=== PATIENT | female | born 1945 | race American Indian/Alaskan Native ===

== ENCOUNTER 2016-10-10 11:42 | Day surgery (SDC) | payer MEDICARE ==
[2016-10-10] VITALS (10 sets, daily range): BP systolic 118–190; BP diastolic 59–90
[~2016-10-10] VITALS: Ht 170.2 cm; Wt 67.1 kg
[2016-10-10] MEDS ORDERED: HEParin (CATH LAB) 2,000 ML IV ONE (12:03)
[2016-10-10] MEDS ORDERED: LIDOCAINE 1% INJ 20 ML (XYLOCAINE) VIAL ONE (12:03)
[2016-10-10] MEDS ORDERED: NS IV 1000 ML 1,000 ML ONE ×3 (12:03→16:06)
[2016-10-10] MEDS ORDERED: POTA99TA21 PO (12:17)
[2016-10-10] MEDS ORDERED: AMLO5TAB2 PO (12:17)
[2016-10-10 12:19] LABS: BASOPHILS # (AUTO) 0.1 10^3/uL (0.0-0.1); BASOPHILS % (AUTO) 1 % (0-10); EOSINOPHILS # (AUTO) 0.1 10^3/uL (0.0-0.3); EOSINOPHILS % (AUTO) 1 % (0-10); LYMPHOCYTES # (AUTO) 3.1 X 10^3 (1.0-4.0); LYMPHOCYTES % (AUTO) 33 % (12-44); MEAN CORPUSCULAR HEMOGLOBIN 29 PG (25-34); MEAN CORPUSCULAR HGB CONC 34 G/DL (32-36); MEAN CORPUSCULAR VOLUME 86 FL (80-99); MEAN PLATELET VOLUME 10.7 FL (7.4-10.4); MONOCYTES # (AUTO) 0.5 X 10^3 (0.0-1.0); MONOCYTES % (AUTO) 5 % (0-12); NEUTROPHILS # (AUTO) 5.6 X 10^3 (1.8-7.8); NEUTROPHILS % (AUTO) 60 % (42-75); PLATELET COUNT 253 10^3/uL (130-400); RED BLOOD COUNT 4.65 10^6/uL (4.35-5.85); RED CELL DISTRIBUTION WIDTH 12.9 % (10.0-14.5); WHITE BLOOD COUNT 9.3 10^3/uL (4.3-11.0)
[2016-10-10] MEDS ORDERED: CYAN500T2 PO (12:19)
[2016-10-10] MEDS ORDERED: CHOL20003 PO (12:19)
[2016-10-10] MEDS ORDERED: VITA1CAP PO (12:19)
[2016-10-10 12:34] LABS: INR 0.9 (0.8-1.4)
[2016-10-10 12:40] LABS: ALANINE AMINOTRANSFERASE 29 U/L (0-55); ALBUMIN 4.3 G/DL (3.2-4.5); ANION GAP 9 MMOL/L (5-14); ASPARTATE AMINO TRANSFERASE 36 U/L (5-34); BILIRUBIN,TOTAL 0.4 MG/DL (0.1-1.0); BLOOD UREA NITROGEN 14 MG/DL (7-18); BUN/CREATININE RATIO 18; CALCIUM 9.4 MG/DL (8.5-10.1); CARBON DIOXIDE 24 MMOL/L (21-32); CHLORIDE 108 MMOL/L (98-107); CHOLESTEROL 275 MG/DL (< 200); CREATININE SERUM 0.79 MG/DL (0.60-1.30); DIRECT LDL 172 MG/DL (1-129); GFR ESTIMATED > 60; GLUCOSE 97 MG/DL (70-105); POTASSIUM 4.1 MMOL/L (3.6-5.0); SODIUM 141 MMOL/L (135-145); TOTAL PROTEIN 6.9 G/DL (6.4-8.2); TRIGLYCERIDES 110 MG/DL (<150); VLDL CHOLESTEROL 22 MG/DL (5-40)
--- NOTE | 2016-10-10 12:56 | Diagnostic Imaging Report ---
INDICATION: Carotid stenosis. Portable chest at 1231 hours. FINDINGS: Heart size and pulmonary vascularity are normal. Lungs are clear. There are no effusions or pneumothoraces. IMPRESSION: Negative chest. Dictated by: Dictated on workstation # [id number]
--- NOTE | 2016-10-10 13:42 | Cardiac Procedure Note-CS/ASA ---
Pre-Procedure Note Pre-Op Procedure Note H&P Reviewed The H&P was reviewed, patient examined and no changes noted. Date H&P Reviewed: Oct 10, 2016 Time H&P Reviewed: 13:41 Conscious Sedation Pre-Proced Time Reviewed: 13:42 ASA Class: 3 Airway Mallampati Classification: (grayling appropriate class) I. II. III, IV Lungs Heart ASA score ASA 1: a normal healthy patient ASA 2: a patient with a mild systemic disease (mid diabetes, controlled hypertension, obesity x ASA 3: a patient with a severe systemic disease that limits activity (angina , COPD, prior Myocardial infarction) ASA 4: a patient with an incapacitating disease that is a constant threat to life (CHF, renal failure) ASA 5: a moribund patient not expected to survive 24 hrs. (ruptured aneurysm) ASA 6: a declared brain patient whose organs are being harvested. For emergent operations, add the letter E after the classification Grade 3 Sedation Plan: Analgesia, Amnesia, Plan communicated to team members, Discussed options with patient/fam, Discussed risks with patient/fam Note The patient is an appropriate candidate to undergo the planned procedure, sedation, and anesthesia. The patient immediately re-assessed prior to indication. JOSEFINA BRICE MD Oct 10, 2016 13:42
[2016-10-10] MEDS ORDERED: ENALAPRILAT 2.5 MG/2 ML (VASOTEC) VIAL IV NR (13:45)
--- NOTE | 2016-10-10 13:48 | Cardiology History & Physical ---
HPI-Cardiology Cardiology Consultation Date of Consultation 10/10/16 Date of Admission Indication: left foot pain HPI 71-year-old lady with history of hypertension, sent to my office for RORY evaluation, has erythema and pain in her left foot for the last 3 months, has been worsening, having cramps and pain in her left foot. RORY was abnormal, poor waveform on the left leg from the left thigh and below. She has been having worsening pain. Does not smoke, denied any chest pain, denied any shortness of breath, any palpitation or syncope. She is fairly anxious. PMH-Cardiology Seasonal Allergies Seasonal Allergies: No Cardiovascular Cardiac Disorders: Hypertension Gastrointestinal Gastrointestinal Disorders: Gall Bladder Disease Other PMHx Other PMHx: past medical history is noncontributory Social History Patient Social History Marrital Status: Alcohol Use: Denies Use Recreational Drug Use: No Smoking: Never smoker Recent Foreign Travel: No Contact w/other who traveled: No Recent Infectious Disease Expo: No Family Hx Family History: FH: gallbladder disease 19 MOTHER Gout 19 FATHER, Onset:60 Myocardial infarction 19 FATHER, Onset:65 Thyroid disease G8 SISTER ROS-Cardiology Review of Systems General: No Chills, No Night Sweats, No Fatigue, No Malaise, No Appetite HEENT: No Head Aches, No Visual Changes, No Eye Pain, No Ear Pain, No Dysphasia , No Sinus Congestion, No Post Nasal Drip, No Sore Throat Pulmonary: No Dyspnea, No Cough, No Pleuritic Chest Pain Cardiovascular: : Other (left foot pain)No: Chest Pain, Edema, Lt Headedness, Orthopnea, Palpitations, Paroxysmal Noc. Dyspnea Gastrointestinal: No: Abdominal Pain, Constipation, Diarrhea, Hematochezia, Melena, Nausea, Vomiting Genitourinary: No Dysuria, No Frequency, No Incontinence, No Hematuria, No Retention Musculoskeletal: No: arm pain, back pain, foot pain, hand pain, leg pain, neck pain, shoulder pain Neurological: No: Change in speech, Confusion, Incoordination, Numbness, Seizures, Weakness Home Medications & Allergies Allergies: Coded Allergies: No Known Drug Allergies (Unverified , 10/10/16) Home Medication List Reviewed: Yes Exam-Cardiology Vital Signs Vital Signs Date Time Temp Pulse Resp B/P Pulse Ox O2 Delivery O2 Flow Rate FiO2 10/10/16 13:15 65 190/85 10/10/16 12:05 97.9 18 99 Room Air Exam General Appearance: Alert, Oriented X3, Cooperative, No Acute Distress HEENT: Atraumatic, PERRLA Respiratory: Clear to Auscultation, Normal Air Movement Cardiovascular: Regular Rate, Normal S1, Normal S2, No Murmurs, Other (left foot is erythematous around the toes, diminished pulses) Abdominal: Normal Bowel Sounds, Soft, No Tenderness, No Hepatosplenomegaly, No Masses Extremities: No Clubbing, No Cyanosis, No Edema, Normal Pulses, No Tenderness/ Swelling Skin: No Rashes, No Breakdown, No Significant Lesion Neuro: Normal Gait, Normal Speech, Strength at 5/5 X4 Ext, Normal Tone, Sensation Intact Psych/Mental Status: Mental Status NL, Mood NL Results Labs Labs Laboratory Tests 10/10/16 12:04: Alanine Aminotransferase (ALT/SGPT) 29, Albumin 4.3, Alkaline Phosphatase 90, Anion Gap 9, Aspartate Amino Transf (AST/SGOT) 36H, BUN/Creatinine Ratio 18, Basophils # (Auto) 0.1, Basophils (%) (Auto) 1, Blood Urea Nitrogen 14, Calcium Level 9.4, Carbon Dioxide Level 24, Chloride Level 108H, Cholesterol Level 275H , Creatinine 0.79, Eosinophils # (Auto) 0.1, Eosinophils (%) (Auto) 1, Estimat Glomerular Filtration Rate > 60, Glucose Level 97, HDL Cholesterol 85H, Hematocrit 40, Hemoglobin 13.5, INR Comment 0.9, LDL Cholesterol Direct 172H, Lymphocytes # (Auto) 3.1, Lymphocytes (%) (Auto) 33, Mean Corpuscular Hemoglobin 29, Mean Corpuscular Hemoglobin Concent 34, Mean Corpuscular Volume 86, Mean Platelet Volume 10.7H, Monocytes # (Auto) 0.5, Monocytes (%) (Auto) 5, Neutrophils # (Auto) 5.6, Neutrophils (%) (Auto) 60, Platelet Count 253, Potassium Level 4.1, Prothrombin Time 12.0L, Red Blood Count 4.65, Red Cell Distribution Width 12.9, Sodium Level 141, Total Bilirubin 0.4, Total Protein 6.9, Triglycerides Level 110, VLDL Cholesterol 22, White Blood Count 9.3 A/P-Cardiology Admission Diagnosis Left foot pain PAD HTN Hyperlipidemia Assessment/Plan Left foot pain with ischemia, abnormal RORY, planning for peripheral angiogram Hypertension, poor control, restart norvasc and monitor BP Hyperlipidemia, will start statin Clinical Quality Measures DVT/VTE Risk/Contraindication: Risk Factor Score Per Nursin RFS Level Per Nursing on Admit: 2=Moderate JOSEFINA BRICE MD Oct 10, 2016 13:48
[2016-10-10 14:09] LABS: BILIRUBIN,URINE NEGATIVE (NEGATIVE); KETONES,URINE NEGATIVE (NEGATIVE); LEUKOCYTE ESTERASE ,URINE NEGATIVE (NEGATIVE); NITRITE,URINE NEGATIVE (NEGATIVE); PH,URINE 8 (5-9); PROTEIN,URINE NEGATIVE (NEGATIVE); UROBILINOGEN,URINE NORMAL (NORMAL)
[2016-10-10] MEDS ORDERED: FLU TRIvalent (5 YOA+) 2016-17 (AFLURIA) 0.5 ML IM ONE (14:15)
[2016-10-10 14:20] LABS: SQUAMOUS EPITHELIAL CELL,UR RARE /HPF
[2016-10-10] MEDS ORDERED: MIDAZOLAM 5 MG/5 ML (VERSED) VIAL ONE (15:36)
[2016-10-10] MEDS ORDERED: fentaNYL INJECTION 100 MCG/2 ML AMP ONE (15:36)
[2016-10-10] MEDS ORDERED: HEParin 1000 UNIT/ML (10ML VIAL) FOR BOLUS ONE (16:02)
[2016-10-10] MEDS ORDERED: NITROGLYCERIN DRIP 25 MG/D5W 250 ML IV ONE (16:38)
[2016-10-10] MEDS ORDERED: CLOPIDOGREL 300 MG (PLAVIX) TABLET PO ONE (17:10)
[2016-10-10] MEDS ORDERED: ASPIRIN 81 MG CHEW (CHILDREN'S ASA) ONE ×2 (17:10→17:16)
[2016-10-10] MEDS ORDERED: NS IV 1000 ML 1,000 ML IV SCH (17:14)
[2016-10-10] MEDS ORDERED: PATIENT MAY USE OWN MEDS, ALL PO SCH (17:15)
[2016-10-10] MEDS ORDERED: PANTOPRAZOLE 40 MG (PROTONIX) TAB PO NR (17:30)
[2016-10-10] MEDS ORDERED: ATORVASTATIN 10 MG (LIPITOR) TABLET PO SCH (21:00)
[2016-10-11 04:11] LABS: MEAN PLATELET VOLUME 10.6 FL (7.4-10.4); RED BLOOD COUNT 3.74 10^6/uL (4.35-5.85)
[2016-10-11 04:32] LABS: ANION GAP 8 MMOL/L (5-14); BLOOD UREA NITROGEN 13 MG/DL (7-18); BUN/CREATININE RATIO 19; CALCIUM 8.1 MG/DL (8.5-10.1); CARBON DIOXIDE 21 MMOL/L (21-32); CHLORIDE 111 MMOL/L (98-107); CREATININE SERUM 0.69 MG/DL (0.60-1.30); GFR ESTIMATED > 60; GLUCOSE 91 MG/DL (70-105); POTASSIUM 4.1 MMOL/L (3.6-5.0); SODIUM 140 MMOL/L (135-145)
[2016-10-11] MEDS ORDERED: OMEGA 3 (FISH OIL) 1000 MG CAP PO SCH (07:00)
[2016-10-11] MEDS ORDERED: PANTOPRAZOLE 40 MG (PROTONIX) TAB PO SCH (07:00)
--- NOTE | 2016-10-11 07:13 | Cardiology Progress Note ---
Subjective Subjective/Events-last exam patient is feeling better, still having pain in her left foot, palpable dorsalis pedis pulse, right groin healed well Review of Systems General: No Chills, No Night Sweats, No Fatigue, No Malaise, No Appetite, No Other HEENT: No Head Aches, No Visual Changes, No Eye Pain, No Ear Pain, No Dysphasia , No Sinus Congestion, No Post Nasal Drip, No Sore Throat, No Other Pulmonary: No Dyspnea, No Cough, No Pleuritic Chest Pain, No Other Objective-Cardiology Exam Last Set of Vital Signs Vital Signs 10/10/16 10/11/16 10/11/16 20:00 01:00 04:00 Temp 98.6 Pulse 59 Resp 12 B/P 152/70 Pulse Ox 97 O2 Delivery Room Air Capillary Refill : Less Than 3 Seconds I&O Bad tableGeneral: Alert, Oriented X3, Cooperative, No Acute Distress HEENT: Atraumatic, PERRLA Neck: Supple, No JVD Lungs: Clear to Auscultation, Normal Air Movement Heart: Regular Rate, Normal S1, Normal S2, No Murmurs, Other (left foot is erythematous around the toes, diminished pulses) Abdomen: Normal Bowel Sounds, Soft, No Tenderness, No Hepatosplenomegaly, No Masses Extremities: No Clubbing, No Cyanosis, No Edema, Normal Pulses, No Tenderness/ Swelling Skin: No Rashes, No Breakdown, No Significant Lesion Neuro: Normal Gait, Normal Speech, Strength at 5/5 X4 Ext, Normal Tone, Sensation Intact Psych/Mental Status: Mental Status NL, Mood NL Results Lab Laboratory Tests 10/10/16 12:04 10/11/16 03:52 A/P-Cardiology Admission Diagnosis Left foot pain PAD HTN Hyperlipidemia Assessment/Plan Left foot pain with ischemia, total occlusion of the left SFA, status post angioplasty and stent with atherectomy, excellent results. Using Supera 5.5 x 100 Hypertension, poor control, restart norvasc and monitor BP Hyperlipidemia, start on Lipitor and Fish oil Educated on compliance with medication. I will continue monitoring as an outpatient Clinical Quality Measures DVT/VTE Risk/Contraindication: Risk Factor Score Per Nursin RFS Level Per Nursing on Admit: 2=Moderate JOSEFINA BRICE MD Oct 11, 2016 07:13
[2016-10-11] MEDS ORDERED: CLOP75TA28 PO (07:15)
[2016-10-11] MEDS ORDERED: PANT40TA3 PO (07:15)
[2016-10-11] MEDS ORDERED: ASPI-983 PO (07:15)
[2016-10-11] MEDS ORDERED: OMG1KC PO (07:15)
[2016-10-11] MEDS ORDERED: ATOR10TA66 PO (07:15)
--- NOTE | 2016-10-11 07:16 | Discharge Inst-Post CATH ---
Discharge Inst-CATH Post Cardiac Cath D/C Inst Follow Up/Plan Appointment with Dr. Barriga's office next week CARDIAC CATH DISCHARGE INSTRUCTIONS *Hold Metformin for 48 hours post heart cath. ACTIVITY * Go Home directly and rest. * Limit activity of the leg (or wrist if it was used) for 7 days including aerobics, swimming, jogging, bicycling, etc. * Restrict stair-climbing for 7 days if possible, if not, climb up with your non -cath leg, then bring together on the same step. * Avoid lifting, pushing, pulling or excessive movement of the affected extremity for 7 days. * Customary sexual activity may be resumed after 2 days-use caution not to use a position that strains or causes pain to the affected extremity. * No driving for 24 hours. * NO SMOKING. * Avoid straining for bowel movements for 7 days. * Gentle walking on level ground is allowed. * Returning to work will depend on the type of procedure and the results. Your doctor will discuss this with you. CALL YOUR DOCTOR FOR ANY OF THE FOLLOWING: *If bleeding from the puncture site occurs- Apply gentle pressure to site with clean cloth and call your doctor or EMS. * If a knot or lump forms under the skin, increases in size, or causes pain. * If bruising appears to be worsening or moving further down your leg instead of disappearing. * Temperature above 101 F. CARE OF YOUR GROIN INCISION; * Bruising or purple discoloration of the skin near the puncture site is common. * You may shower only, no bathtub bathing for 5 days. Be careful to avoid slipping as your leg may feel stiff. * If a closure device was used on your femoral artery, please see the attached guide regarding care of the device and your leg. * REMOVE the dressing from your groin the next day after your procedure in the shower. CARE OF YOUR WRIST INCISION; * Bruising or purple discoloration of the skin near the puncture site is common. * You may shower. * DO NOT submerge wrist. * Remove dressing in 24 hours. JOSEFINA BARRIGA MD Oct 11, 2016 07:16
[2016-10-11] MEDS ORDERED: amLODIPine 5 MG (NORVASC) TAB PO SCH (09:00)
[2016-10-11] MEDS ORDERED: CLOPIDOGREL 75 MG (PLAVIX) TABLET PO SCH (09:00)
[2016-10-11] MEDS ORDERED: ASPIRIN E.C. 81 MG (ECOTRIN) TAB PO SCH (09:00)
--- OUTSIDE RECORDS SUMMARY | 2016-10-11 16:02 | XMS REPORT | Continuity of Care Document ---
Author Author [facility] Organization [facility] Address Unknown Phone Unavailable Allergies Medications Problems Procedures Results Encounters ACCT No. Visit Date/Time Discharge Status Pt. Type Provider Facility Loc./Unit Complaint [id number] 09/09/2014 14:04:45 09/09/2014 23: 59:59 [facility] Out[facility] Darion Higgins [id number] 09/07/2014 13:26:40 09/07/2014 23: 59:59 [facility] Outpatient Darion Higgins [id number] 08/25/2014 14:06:52 08/25/2014 23: 59:59 [facility] Outpatient Darion Higgins [id number] 08/09/2014 11:32:51 08/09/2014 23: 59:59 [facility] Outpatient Archie Davis [id number] 09/17/2016 11:35:11 [facility] Out[facility] Archie Davis [id number] 08/31/2016 09:38:41 [facility] Out[facility] Archie Davis [id number] 08/21/2016 11:35:04 [facility] Outpatient Archie Davis
--- OUTSIDE RECORDS SUMMARY | 2016-10-11 16:02 | XMS REPORT | Continuity of Care Document ---
Author Author [facility] Organization [facility] Address Unknown Phone Unavailable Allergies Medications Problems Procedures Results Encounters ACCT No. Visit Date/Time Discharge Status Pt. Type Provider Facility Loc./Unit Complaint [id number] 09/09/2014 14:04:45 09/09/2014 23: 59:59 [facility] Out[facility] Darion Higgins [id number] 09/07/2014 13:26:40 09/07/2014 23: 59:59 [facility] Outpatient Darion Higgins [id number] 08/25/2014 14:06:52 08/25/2014 23: 59:59 [facility] Outpatient Darion Higgins [id number] 08/09/2014 11:32:51 08/09/2014 23: 59:59 [facility] Outpatient Archie Davis [id number] 09/17/2016 11:35:11 [facility] Outpatient Archie Davis [id number] 08/31/2016 09:38:41 [facility] Outpatient Archie Davis [id number] 08/21/2016 11:35:04 [facility] Outpatient Archie Davis
[2016-10-11] MEDS ORDERED: AMLO10TA2 PO (18:46)
[2016-10-11] MEDS ORDERED: LOSA100T28 PO (18:46)
--- NOTE | 2016-10-12 10:08 | DISCHARGE SUMMARY ---
PROCEDURE PHYSICIAN: JOSEFINA BRICE PERIPHERAL ANGIOGRAM WITH ANGIOPLASTY REPORT DATE OF PROCEDURE: 09/09/2016 REFERRING PHYSICIAN: Dr. Yamilex Jama PRIMARY PHYSICIAN: Archie Amado BRIEF HISTORY: Mrs. Day is a 71-year-old lady with a history of hypertension. She was seen in my office today for RORY. She has been having pain in her left foot with redness appeared to be ischemic. ABIs showed poor flow with waveform almost flattened below the knee. We sent her directly for direct admission and angiogram to be done urgently. PROCEDURE NOTE: After explaining the procedure to the patient, all pros and cons were explained. All questions were answered. The patient signed a consent, then she was placed on the cardiac catheterization laboratory. The right groin was prepped in a sterile fashion. Local anesthesia applied to right groin. 6-Maltese sheath was placed in the right femoral artery. Runoff of the right lower extremity was done through the sheath and I advanced the pigtail catheter, placed in the abdominal aorta. Abdominal aortogram and evaluation of the bifurcation was done. Then I advance a Storq wire across the pigtail catheter, placed in the left common iliac, exchanged the straight catheter and runoff of the left lower extremity was done which showed total occlusion. The straight catheter was advanced to the SFA and repeat angiogram was done. Then I placed a Storq wire, removed the straight catheter and exchanged the sheath and 7-Maltese 55 mm sheath. The patient was given 5000 units of heparin. I advanced glidewire through the lesion. The patient has total occlusion of the distal SFA extending into the popliteal with very slow flow at the knee and below. Glidewire zip wire was advanced without difficulty. Then I used a Mini catheter, advanced distally, placed at the distal popliteal artery and the wire was removed injected dye and angiogram was done to evaluate the area below the trifurcation. At that point I decided to use protection device. I used Nad 6 wire. The basket was deployed, then I used jet stream G-3 with multiple passes through the total occlusion and then blades were opened up and did multiple passes. Angiogram showed slow flow but established lumen. I retrieved the basket then advanced a Storq wire. Over the Storq wire. I proceeded with Iron Belt balloon 5 x 40 mm multiple inflations, then I used Iron Belt 35, 6 x 100 inflated to its nominal size, multiple inflations. Then I readvanced Mini catheter, removed the Storq wire and used V18 wire. I proceeded with deployment of Supera stent 5.5 x 100, deployed in the distal SFA. After deployment I readvanced the Iron Belt 6 balloon post-dilated. Angiogram showed excellent results with excellent flow down to the foot. I did 2 separate angiogram below the trifurcation at the foot level which showed excellent results. Then the sheath was backed up and I exchanged into short 7-Maltese sheath. I readvanced Pigtail catheter to the abdominal aorta, I evaluate the abdominal aorta again. No complication noted. The sheath was removed and Mynx device deployed. Hemostasis achieved. Total heparin given was 8000 units, total contrast used 115 mL. ANATOMY: 1. Abdominal aortogram showed mild atherosclerotic small aorta. No aneurysm or dissection. 2. Right lower extremity runoff: The right lower extremity showed heavily calcified SFA throughout with NIA 2 flow down to the foot. 3. Left lower extremity angiogram showed total occlusion of the distal SFA, heavily calcified artery. Successful debulking with jet stream after deployment of basket wire then post dilatation and then deployment of Supera stent 5.5 x 100 mm with excellent results. No residual stenosis was noted. Brisk slowed down to the foot. CONCLUSION: 1. Total occlusion of the left SFA with ischemic foot. Successful emergency atherectomy with protection device then balloon angioplasty, then deployment of Supera stent 5.5 x 100 mm to the distal SFA with excellent results. No residual stenosis NIA-3 flow down to the foot. 2. Heavily calcified arteries on the right side with mild disease, nonobstructive disease. DISCUSSION AND RECOMMENDATION: The patient will be treated medically. She was loaded with aspirin and Plavix, Lipitor. I will continue monitoring her and she will be discharged home tomorrow FINAL DIAGNOSIS: 1. Peripheral arterial disease. 2. Hypertension. 3. Hyperlipidemia. 4. Ischemic foot Job ID: [id number] Dictated Date: 10/10/2016 17:26:01 Fern Cutter Date: 10/12/2016 10:05:41/sadie
== END 2016-10-11 10:00 | disposition home or self-care (01) ==
LOC: ICU 11:42 → CATH 11:42 → ICU 11:42 → UNDOADMOB 11:42 → ICU 15:00 → CATH 10-11 10:00 → UNDODISOB 10-11 10:00 → EDSTATUS 10-11 15:59
PROVIDERS: ATTEND Internal Medicine Cardiovascular Disease
DX: I70.223 Atherosclerosis of native arteries of extremities with rest pain, bilateral legs (principal); I70.92 Chronic total occlusion of artery of the extremities; I70.0 Atherosclerosis of aorta; I99.8 Other disorder of circulatory system; I10 Essential (primary) hypertension; E78.5 Hyperlipidemia, unspecified; Z79.899 Other long term (current) drug therapy
CPT/HCPCS: 36247; 36415; 37227; 71010; 75625; 75716; 75774; 80048; 80053; 80061; 81000; 85025; 85027; 85347; 85610

== ENCOUNTER 2016-10-11 16:16 | Emergency (ER) | payer MEDICARE ==
[~2016-10-11] VITALS: Ht 170.2 cm; Wt 67.1 kg
[~2016-10-11 16:16] MED LIST: AMLO5TAB2 PO; ASPI-983 PO; ATOR10TA66 PO; CHOL20003 PO; CLOP75TA28 PO; CYAN500T2 PO; OMG1KC PO; PANT40TA3 PO; POTA99TA21 PO; VITA1CAP PO
--- OUTSIDE RECORDS SUMMARY | 2016-10-11 16:21 | XMS REPORT | Continuity of Care Document ---
Author Author [facility] Organization [facility] Address Unknown Phone Unavailable Allergies Medications Problems Procedures Results Encounters ACCT No. Visit Date/Time Discharge Status Pt. Type Provider Facility Loc./Unit Complaint [id number] 09/09/2014 14:04:45 09/09/2014 23: 59:59 [facility] Out[facility] Darion Higgins [id number] 09/07/2014 13:26:40 09/07/2014 23: 59:59 [facility] Outpatient Darion Higgins [id number] 08/25/2014 14:06:52 08/25/2014 23: 59:59 [facility] Outpatient Darion Higgins [id number] 08/09/2014 11:32:51 08/09/2014 23: 59:59 [facility] Outpatient Archie Davis [id number] 09/17/2016 11:35:11 [facility] Outpatient Archie Davis [id number] 08/31/2016 09:38:41 [facility] Outpatient Archie Davis [id number] 08/21/2016 11:35:04 [facility] Outpatient Archie Davis
--- NOTE | 2016-10-11 17:34 | Diagnostic Imaging Report ---
EXAMINATION: Left lower extremity duplex venous ultrasound. TECHNIQUE: DVT protocol. Multiple sonographic images with color Doppler and waveform interrogation were performed of the left lower extremity veins with compression and augmentation maneuvers. INDICATION: Left leg swelling and redness. FINDINGS: The left lower extremity veins from the groin to below the knee veins were examined with normal color-flow, compressibility and waveform demonstrated. The great saphenous vein is patent. IMPRESSION: No evidence of DVT in the left lower extremity. Dictated by: Dictated on workstation # [id number]
[2016-10-11 17:41] LABS: BASOPHILS % (AUTO) 0 % (0-10); EOSINOPHILS # (AUTO) 0.1 10^3/uL (0.0-0.3); EOSINOPHILS % (AUTO) 1 % (0-10); LYMPHOCYTES # (AUTO) 2.7 X 10^3 (1.0-4.0); LYMPHOCYTES % (AUTO) 26 % (12-44); MEAN CORPUSCULAR HEMOGLOBIN 29 PG (25-34); MEAN CORPUSCULAR HGB CONC 34 G/DL (32-36); MEAN CORPUSCULAR VOLUME 87 FL (80-99); MEAN PLATELET VOLUME 10.6 FL (7.4-10.4); MONOCYTES # (AUTO) 0.6 X 10^3 (0.0-1.0); MONOCYTES % (AUTO) 6 % (0-12); NEUTROPHILS % (AUTO) 67 % (42-75); PLATELET COUNT 232 10^3/uL (130-400); RED BLOOD COUNT 4.51 10^6/uL (4.35-5.85); WHITE BLOOD COUNT 10.5 10^3/uL (4.3-11.0)
--- NOTE | 2016-10-11 17:42 | Diagnostic Imaging Report ---
INDICATION: Stent placement, left leg pain, peripheral vascular disease. COMPARISON: None. FINDINGS: Mild to moderate irregular plaque seen throughout the lower extremity arterial system. There is a diffuse monophasic flow pattern. No focal occlusion is identified. There is some stenosis in the distal SFA and popliteal artery. Runoff flow is seen to the ankle mortise. IMPRESSION: 1. Mild to moderate diffuse atherosclerosis with monophasic flow pattern. 2. Elevated velocities in the distal SFA and popliteal artery consistent with focal stenoses. 3. No acute occlusion identified. Dictated by: Dictated on workstation # [id number]
[2016-10-11 18:00] LABS: ALANINE AMINOTRANSFERASE 29 U/L (0-55); ALBUMIN 4.4 G/DL (3.2-4.5); ANION GAP 7 MMOL/L (5-14); ASPARTATE AMINO TRANSFERASE 35 U/L (5-34); BILIRUBIN,TOTAL 0.4 MG/DL (0.1-1.0); BLOOD UREA NITROGEN 16 MG/DL (7-18); BUN/CREATININE RATIO 18; CALCIUM 9.3 MG/DL (8.5-10.1); CARBON DIOXIDE 26 MMOL/L (21-32); CHLORIDE 107 MMOL/L (98-107); CREATININE SERUM 0.91 MG/DL (0.60-1.30); GFR ESTIMATED > 60; GLUCOSE 97 MG/DL (70-105); POTASSIUM 4.2 MMOL/L (3.6-5.0); SODIUM 140 MMOL/L (135-145); TOTAL PROTEIN 6.9 G/DL (6.4-8.2); hs C REACTIVE PROTEIN 0.26 MG/DL (0.00-0.50)
[2016-10-11] MEDS ORDERED: NS IV 500 ML 500 ML IV ONE (18:20)
[2016-10-11] MEDS ORDERED: KETOROLAC 30 MG/ML VIAL IVP ONE (18:30)
[2016-10-11] MEDS ORDERED: LOSARTAN 50 MG (COZAAR) TAB PO ONE (18:30)
--- NOTE | 2016-10-11 18:33 | ED General ---
General Chief Complaint: Lower Extremity Stated Complaint: SWOLLEN FOOT Nursing Triage Note: PT STATES SHE HAD A PROCEDURE DONE HERE PUTTING A STENT IN HER LT LEG, PT WAS JUST RELEASED, CC OF PAIN IN LOWER LT LEG ALONG WITH SWELLING. STATED THE FOOT WAS VERY HOT AFTER GOING HOME AND IT WAS NOT LIKE THAT WHEN THEY LEFT THE HOSPITAL THIS A.M. Nursing Sepsis Screen: No Definite Risk Source of Information: Patient, Family, Old Records Exam Limitations: No Limitations History of Present Illness Time Seen by Provider: 16:20 Initial Comments This 71-year-old woman presents to the emergency room with left lower extremity heat, erythema, pain, and swelling from the distal calf through the foot after having an SFA angioplasty and stenting by Dr. Barriga yesterday. She is also notably hypertensive. Allergies and Home Medications Allergies Coded Allergies: lisinopril (Verified Adverse Reaction, Intermediate, 10/11/16) Cough Home Medications Amlodipine Besylate 5 Mg Tablet 5 MG PO DAILY (Reported) Amlodipine Besylate 10 Mg Tablet #30 10 MG PO DAILY Prescribed by: HERMILA AGUILAR on 10/11/161845 Aspirin 81 Mg Tablet. #100 81 MG PO DAILY Prescribed by: JOSEFINA BARRIGA on 10/11/16714 Atorvastatin Calcium 10 Mg Tablet #30 10 MG PO HS Prescribed by: JOSEFINA BARRIGA on 10/11/16714 Cholecalciferol (Vitamin D3) 2,000 Unit Capsule 2,000 UNIT PO DAILY (Reported) Clopidogrel Bisulfate 75 Mg Tablet #30 75 MG PO DAILY Prescribed by: JOSEFINA BARRIGA on 10/11/16714 Cyanocobalamin (Vitamin B-12) 500 Mcg Tablet 500 MCG PO TID (Reported) Losartan Potassium 100 Mg Tablet #30 100 MG PO DAILY Prescribed by: HERMILA AGUILAR on 10/11/161845 [place] 3 Polyunsat Fatty Acids 1,000 Mg Cap #100 1,000 MG PO BID WITH MEALS Prescribed by: JOSEFINA BARRIGA on 10/11/16714 Pantoprazole Sodium 40 Mg Tablet. #30 40 MG PO DAILY@0700 Prescribed by: JOSEFINA BARRIGA on 10/11/16714 Constitutional: no symptoms reported EENTM: no symptoms reported Respiratory: no symptoms reported Cardiovascular: see HPI Gastrointestinal: no symptoms reported Genitourinary: no symptoms reported Musculoskeletal: no symptoms reported Skin: see HPI Psychiatric/Neurological: No Symptoms Reported Hematologic/Lymphatic: No Symptoms Reported Past Vekkigy-Ljvwgc-Vhgnij Hx Patient Social History Alcohol Use: Denies Use Recreational Drug Use: No Smoking Status: Never a Smoker 2nd Hand Smoke Exposure: Yes Recent Foreign Travel: No Contact w/Someone Who Travel: No Recent Infectious Disease Expo: No Recent Hopitalizations: Yes (SURGERY 10/10/16) Seasonal Allergies Seasonal Allergies: No Surgeries HX Surgeries: Yes (HYSTERECTOMY 1980, R CAROTID "PATCH PLACED") Surgeries: Gallbladder, Hysterectomy, Vascular Surgery (right CEA with patch, arterial stenting to the left SFA) Respiratory Hx Respiratory Disorders: No Cardiovascular Hx Cardiac Disorders: Yes Cardiac Disorders: Hypertension, Peripheral Vascular Neurological Hx Neurological Disorders: No Reproductive System Hx Reproductive Disorders: No Genitourinary Hx Genitourinary Disorders: No Gastrointestinal Hx Gastrointestinal Disorders: Yes (GB REMOVED 2013) Gastrointestinal Disorders: Gall Bladder Disease Musculoskeletal Hx Musculoskeletal Disorders: No Endocrine Hx Endocrine Disorders: No HEENT HX ENT Disorders: No Cancer Hx Cancer: No Psychosocial Hx Psychiatric Problems: No Integumentary HX Skin/Integumentary Disorder: No Blood Transfusions Hx Blood Disorders: No Family Medical History Family Medial History: FH: gallbladder disease 19 MOTHER Gout 19 FATHER, Onset:60 Myocardial infarction 19 FATHER, Onset:65 Thyroid disease G8 SISTER Physical Exam Vital Signs Vital Sign - Last 12Hours 10/11/16 16:28 Temp 98.0 Pulse 80 Resp 20 Pulse Ox 99 O2 Delivery Room Air Capillary Refill : Less Than 3 Seconds General Appearance: No Apparent Distress WD/WN HEENT: PERRL/EOMI Normal ENT Inspection Respiratory: Lungs Clear Normal Breath Sounds No Accessory Muscle Use No Respiratory Distress Cardiovascular: Regular Rate, Rhythm No Edema No Murmur Normal Peripheral Pulses Extremity: Other (left lower extremity demonstrates edema, tenderness, petechial erythema, and heat from the distal calf through the toes. Sensation and movement are intact. 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 Norm as Tested Skin: Normal Color Warm/Dry Other (see extremity exam above) Progress/Results/Core Measures Results/Orders Lab Results Laboratory Tests Test 10/11/16 17:30 Range/Units Alanine Aminotransferase (ALT/SGPT) 29 0-55 U/L Albumin 4.4 3.2-4.5 G/DL Alkaline Phosphatase 104 40-136 U/L Anion Gap 7 5-14 MMOL/L Aspartate Amino Transf (AST/SGOT) 35 H 5-34 U/L BUN/Creatinine Ratio 18 Basophils # (Auto) 0.0 0.0-0.1 10^3/uL Basophils (%) (Auto) 0 0-10 % Blood Urea Nitrogen 16 7-18 MG/DL C-Reactive Protein High Sensitivity 0.26 0.00-0.50 MG/DL Calcium Level 9.3 8.5-10.1 MG/DL Carbon Dioxide Level 26 21-32 MMOL/L Chloride Level 107 98-107 MMOL/L Creatinine 0.91 0.60-1.30 MG/DL Eosinophils # (Auto) 0.1 0.0-0.3 10^3/uL Eosinophils (%) (Auto) 1 0-10 % Estimat Glomerular Filtration Rate > 60 Glucose Level 97 70-105 MG/DL Hematocrit 39 35-52 % Hemoglobin 13.3 # 11.5-16.0 G/DL Lymphocytes # (Auto) 2.7 1.0-4.0 X 10^3 Lymphocytes (%) (Auto) 26 12-44 % Mean Corpuscular Hemoglobin 29 25-34 PG Mean Corpuscular Hemoglobin Concent 34 32-36 G/DL Mean Corpuscular Volume 87 80-99 FL Mean Platelet Volume 10.6 H 7.4-10.4 FL Monocytes # (Auto) 0.6 0.0-1.0 X 10^3 Monocytes (%) (Auto) 6 0-12 % Neutrophils # (Auto) 7.0 1.8-7.8 X 10^3 Neutrophils (%) (Auto) 67 42-75 % Platelet Count 232 130-400 10^3/uL Potassium Level 4.2 3.6-5.0 MMOL/L Red Blood Count 4.51 4.35-5.85 10^6/uL Red Cell Distribution Width 13.0 10.0-14.5 % Sodium Level 140 135-145 MMOL/L Total Bilirubin 0.4 0.1-1.0 MG/DL Total Protein 6.9 6.4-8.2 G/DL Uric Acid 4.3 2.6-7.2 MG/DL White Blood Count 10.5 4.3-11.0 10^3/uL My Orders Orders-HERMILA LÓPEZ MD Cbc With Automated Diff (10/11/16 16:56) Comprehensive Metabolic Panel (10/11/16 16:56) Hs C Reactive Protein (10/11/16 16:56) Saline Lock/Iv-Start (10/11/16 16:56) Us Venous Lower Ext Lt (10/11/16 16:56) Us Left Low Ext Arterial 15465 (10/11/16 16:56) Ketorolac Injection (Toradol Injection) (10/11/16 18:30) Ns Iv 500 Ml (Sodium Chloride 0.9%) (10/11/16 18:20) Uric Acid (10/11/16 18:20) Losartan Tablet (Cozaar Tablet) (10/11/16 18:30) Medications Given in ED Current Medications Medications Dose Ordered Sig/[place] Route Start Time Stop Time Status Last Admin Dose Admin Ketorolac Tromethamine 30 mg 30 mg ONCE ONCE IVP 10/11/16 18:30 10/11/16 18:31 DC 10/11/16 18:29 30 MG Sodium Chloride 500 ml @ 0 mls/hr Q0M ONCE IV 10/11/16 18:20 10/11/16 18:22 DC 10/11/16 18:30 1,000 MLS/HR Vital Signs/I&O Vital Sign - Last 12Hours 10/11/16 16:28 Temp 98.0 Pulse 80 Resp 20 B/P Pulse Ox 99 O2 Delivery Room Air Progress Note : Time: 18:27 Progress Note Case was discussed with Dr. Barriga. He and I concur that the patient's discomfort and swelling are likely related to reperfusion. He recommends controlling blood pressure by maximizing amlodipine and adding losartan. Bonifacio inhibitors have previously been not been tolerated due to cough. He also recommended IV hydration and NSAID therapy. Toradol and IV fluids were ordered. Finally, he recommended checking for gout. Uric acid has been ordered. Diagnostic Imaging Diagonstic Imaging: Ultrasound Plain Films/CT/US/NM/MRI: leg Comments Arterial and venous ultrasound reports reviewed and discussed with the ammonia technician. See report below. NAME: MYKE SINGH [facility] REC#: [id number] PT STATUS: REG ER : 1945 PHYSICIAN: HERMILA LÓPEZ MD ADMIT DATE: 10/11/16/ER Signed Date of Exam: 10/11/16 US VENOUS LOWER EXT LT EXAMINATION: Left lower extremity duplex venous ultrasound. TECHNIQUE: DVT protocol. Multiple sonographic images with color Doppler and waveform interrogation were performed of the left lower extremity veins with compression and augmentation maneuvers. INDICATION: Left leg swelling and redness. FINDINGS: The left lower extremity veins from the groin to below the knee veins were examined with normal color-flow, compressibility and waveform demonstrated. The great saphenous vein is patent. IMPRESSION: No evidence of DVT in the left lower extremity. Dictated by: Dictated on workstation # [id number] Dict: 10/11/161730 Trans: 10/11/161731 S [id number] Interpreted by: TAI CHOI MD Electronically signed by:TAI CHOI MD 10/11/161733 NAME: MYKE SINGH [facility] REC#: [id number] PT STATUS: REG ER : 1945 PHYSICIAN: HERMILA LÓPEZ MD ADMIT DATE: 10/11/16/ER Signed Date of Exam: 10/11/16 US LEFT LOW EXT ARTERIAL [id number] INDICATION: Stent placement, left leg pain, peripheral vascular disease. COMPARISON: None. FINDINGS: Mild to moderate irregular plaque seen throughout the lower extremity arterial system. There is a diffuse monophasic flow pattern. No focal occlusion is identified. There is some stenosis in the distal SFA and popliteal artery. Runoff flow is seen to the ankle mortise. IMPRESSION: 1. Mild to moderate diffuse atherosclerosis with monophasic flow pattern. 2. Elevated velocities in the distal SFA and popliteal artery consistent with focal stenoses. 3. No acute occlusion identified. Dictated by: Dictated on workstation # [id number] Dict: 10/11/161731 Trans: 10/11/16 1755 KB [id number] Interpreted by: KAROLYN JUDD Electronically signed by:KAROLYN JUDD 10/11/16 528 Departure Impression Impression: Primary Impression: Edema of left lower extremity Additional Impressions: Left leg pain Hypertension Qualified Code: I10 - Essential (primary) hypertension Peripheral artery disease Disposition: HOME, SELF-CARE Condition: Improved Departure-Patient Inst. Decision time for Depature: 18:15 Referrals: KEILY CASEY [employer] (PCP/Family) Primary Care Physician Patient Instructions: Peripheral Artery Disease and Claudication Add. Discharge Instructions: Drink plenty of clear liquids. Uric acid and inflammatory labs were unremarkable. This means you probably do not have gout or infection. You may take ibuprofen up to 600 mg every 6 hours as needed for pain. Increase your amlodipine to 10 mg daily. A new prescription has been provided for this dose. In the meantime, you may take 2 of the 5 mg tablets a day. Add losartan as prescribed. Elevate your leg to the level of your heart as much as possible. Follow-up with Dr. Barriga next week. Return to care if symptoms worsen. All discharge instructions reviewed with patient and/or family. Voiced understanding. Scripts Amlodipine Besylate 10 Mg [id number] Mg PO DAILY #30 TAB Prov:HERMILA LÓPEZ MD 10/11/16 Losartan Potassium 100 Mg [id number] Mg PO DAILY #30 TAB Prov:HERMILA LÓPEZ MD 10/11/16 Copy Copies To 1: JOSEFINA BARRIGA MD, JOSHUA T MD Oct 11, 2016 18:33
[2016-10-11] MEDS ORDERED: LOSA100T28 PO (18:46)
[2016-10-11] MEDS ORDERED: AMLO10TA2 PO (18:46)
[2016-10-11 19:00] VITALS: BP 177/69
== END 2016-10-11 19:00 | disposition home or self-care (01) ==
LOC: EDUNIT# 16:16 → ER 16:17
DX: R60.0 Localized edema (principal); G89.18 Other acute postprocedural pain; I73.9 Peripheral vascular disease, unspecified; I10 Essential (primary) hypertension; Z95.9 Presence of cardiac and vascular implant and graft, unspecified; Z79.82 Long term (current) use of aspirin; Z79.899 Other long term (current) drug therapy
CPT/HCPCS: 36415; 80053; 84550; 85025; 86141; 93926; 96374; 99283

== ENCOUNTER → 2019-04-03 | Outpatient (CLI) | payer MEDICARE ==
[~2019-04-03] MED LIST changes: +AMLO10TA7 PO; -AMLO5TAB2 PO; +AMLO5TAB9 PO; -CYAN500T2 PO; +CYAN500T62 PO; +LOSA100T57 PO
--- NOTE | 2019-04-03 08:40 | Diagnostic Imaging Report ---
PATIENT HISTORY: MIXED HYPERLIPIDEMIA. Hypertension. Peripheral arterial disease. TECHNIQUE: Grayscale, color Doppler and spectral Doppler ultrasound performed of the bilateral kidneys and renal arteries. COMPARISON: None FINDINGS: The abdominal aorta measures 110 cm/s in velocity. The right kidney measures 7.9 cm in length which is mildly small. The renal cortex demonstrates normal thickness and echogenicity. No hydronephrosis is seen. No shadowing calculi are seen. No renal masses are seen. Laxity of the right renal artery measures 117 cm/s proximally, 196 cm/s mid, and 137 cm/s distally. The resistive indices are 0.69, 0.73, and 0.71 respectively. The renal artery/aorta ratio measures 1.1, 1.8, and 1.2 respectively. The arcuate arteries in the right kidney demonstrate resistive index between 0.62 and 0.66 from superior, mid, and inferior kidney. The waveforms are unremarkable. The left kidney measures 8.6 cm in length. Renal cortex appears normal. No hydronephrosis or renal calculi are seen. The left renal artery measures 59 cm/s proximally, 69 cm/s mid-, and 58 cm/s distally. The resistive indices are 0.76, 0.71, and 0.76 respectively. The renal artery/aorta ratio measures 0.5, 0.6, and 0.5 respectively. The arcuate arteries in the left kidney demonstrate resistive indices ranging between 0.63 and 0.68. The waveforms appear normal. The bladder is mildly distended. Bilateral ureteral jets were seen. IMPRESSION: Increased right renal artery velocities relative to the left, however waveforms and renal artery/aorta ratio appears within normal limits without hemodynamically significant stenosis. Dictated by: Dictated on workstation # [id number]
== END ==
LOC: RAD 06:41
PROVIDERS: ATTEND Internal Medicine Cardiovascular Disease
DX: I73.9 Peripheral vascular disease, unspecified (principal); I10 Essential (primary) hypertension; E78.2 Mixed hyperlipidemia
CPT/HCPCS: 76770; 93306; 93975

== ENCOUNTER → 2019-04-06 | Outpatient (CLI) | payer MEDICARE ==
[~2019-04-06] MED LIST changes: +CATHETER FLUSH 10 ML SYR IV PRN; +REGADENOSON 0.4 MG/5 ML SYR (LEXISCAN) IV ONE
[2019-04-06 10:24] VITALS: BP 200/88
[2019-04-06 10:26] VITALS: BP 192/76
--- NOTE | 2019-04-09 16:28 | STRESS TEST ---
DATE OF SERVICE: 04/06/2019 LEXISCAN MYOVIEW STRESS TEST Baseline heart rate is 66. Baseline blood pressure is 230/98. Baseline EKG is sinus rhythm with no ischemic changes. In summary, the patient received 10.67 mCi of technetium-99 Myoview and the resting images were obtained. Then, the patient received 0.4 mg of Lexiscan followed by 29.6 mCi of technetium-99 Myoview. Throughout the test, there were no EKG changes. The resting and stress images were reviewed and compared in the short axis, horizontal long axis, and vertical long axis views. Review of the images showed good radiotracer uptake with no significant ischemia or infarction. SSS is 0. TID value 1.13. On the gated images, the left ventricle appeared to be normal size with normal contractility. Calculated ejection fraction is 68%. CONCLUSION: 1. The patient tolerated Lexiscan well. 2. Baseline hypertension persisted throughout test. 3. No significant ischemia or infarction on SPECT images. 4. Normal left ventricular size with normal contractility. Calculated ejection fraction 68%. Job ID: [id number] DocumentID: [id number] Dictated Date: 04/06/2019 12:12:18 [employer] Date: 04/06/2019 12:53:51 Dictated By: JOSEFINA BRICE MD
== END ==
LOC: CARD 08:19
PROVIDERS: ATTEND Internal Medicine Cardiovascular Disease
DX: E78.2 Mixed hyperlipidemia (principal); I10 Essential (primary) hypertension; I73.9 Peripheral vascular disease, unspecified
CPT/HCPCS: 78452; 93017

== ENCOUNTER 2020-10-25 12:08 | Emergency (ER) | payer MEDICARE ==
[~2020-10-25] VITALS: Ht 170.1 cm; Wt 72.7 kg
[~2020-10-25 12:08] MED LIST changes: +AMLO-250 PO; +AMLO-251 PO; -AMLO10TA7 PO; -AMLO5TAB9 PO; +ASPI-1238 PO; -ASPI-983 PO; -CATHETER FLUSH 10 ML SYR IV PRN; -CYAN500T62 PO; +CYAN500T8 PO; -PANT40TA3 PO; +PANT40TA52 PO; -REGADENOSON 0.4 MG/5 ML SYR (LEXISCAN) IV ONE
--- NOTE | 2020-10-25 14:47 | Diagnostic Imaging Report ---
EXAMINATION: US RIGHT LOW EXT [id number]. TECHNIQUE: Multi projectional grayscale, color Doppler, and spectral Doppler imaging of the right lower extremity arteries was performed. INDICATION: Decreased pulses and cold right foot. COMPARISON: None available. FINDINGS: Color Doppler imaging shows patency of the common femoral, proximal deep femoral, superficial femoral, popliteal, peroneal, anterior tibial, and dorsalis pedis arteries. In the proximal thigh, there are normal triphasic waveforms; however, in the distal thigh and below the knee, there are predominantly monophasic waveforms with diminished acceleration indices that favor peripheral vascular disease and more proximal upstream stenosis. However, there are no elevated peak systolic velocities that would indicate a hemodynamically significant stenosis. IMPRESSION: 1. No arterial occlusion within the right lower extremity arteries. 2. Monophasic waveforms with diminished velocities favor peripheral vascular disease. Dictated by: Dictated on workstation # [id number]
--- NOTE | 2020-10-25 15:13 | ED Lower Extremity ---
General Chief Complaint: Lower Extremity Stated Complaint: R LEG COLD POSSIBLE STENT Nursing Triage Note: AMB TO ED REPORTS WAS TO HAVE STENT PLACED IN R LEG IN NOV HAD TO CANCELL. HAVING PAIN IN ANKLE WHEN WALKING AT REST IT IS OK. SHE REPORTS WAS TOLD BY DR BARRIGA OFFICE TO COME TO ED FOR POSSIBEL STENT. [address] BARRIGA OFFICE. THEY REPORT SHE CALLED THEM AND TOLD THAT HER LEG WAS COLD AND BLUE. Nursing Sepsis Screen: No Definite Risk Source: patient Exam Limitations: no limitations History of Present Illness Date Seen by Provider: Oct 25, 2020 Time Seen by Provider: 12:15 Initial Comments This 75-year-old woman presents to the emergency room with a painful, cool, pale right foot. She has history of significant peripheral vascular disease requiring stenting of the left leg and carotid surgery in the past. She was supposed to have a procedure performed on the right leg last fall but did not follow through with it. She has had a global director air and climate change the last several days in the pain in appearance of her right foot. Her right lower leg and foot also appear atrophied when compared to the left. She has a very strong pedal pulse on the left but no palpable pedal pulse on the right. She is not currently taking any antiplatelet therapies. Allergies and Home Medications Allergies Coded Allergies: lisinopril (Verified Adverse Reaction, Intermediate, 10/11/16) Cough Home Medications Amlodipine Besylate 5 Mg Tablet, 5 MG PO DAILY, (Reported) Amlodipine Besylate 10 Mg Tablet, 10 MG PO DAILY Prescribed by: HERMILA AGUILAR on 10/11/161845 Aspirin 81 Mg Tablet.dr, 81 MG PO DAILY Prescribed by: JOSEFINA BARRIGA on 10/11/16714 Atorvastatin Calcium 10 Mg Tablet, 10 MG PO HS Prescribed by: JOSEFINA BARRIGA on 10/11/16714 Cholecalciferol (Vitamin D3) 2,000 Unit Capsule, 2,000 UNIT PO DAILY, (Reported) Clopidogrel Bisulfate 75 Mg Tablet, 75 MG PO DAILY Prescribed by: JOSEFINA BARRIGA on 10/11/16714 Cyanocobalamin (Vitamin B-12) 500 Mcg Tablet, 500 MCG PO TID, (Reported) Losartan Potassium 100 Mg Tablet, 100 MG PO DAILY Prescribed by: HERMILA AGUILAR on 10/11/161845 [place] 3 Polyunsat Fatty Acids 1,000 Mg Cap, 1,000 MG PO BID WITH MEALS Prescribed by: JOSEFINA BARRIGA on 10/11/16 0715 Pantoprazole Sodium 40 Mg Tablet.dr, 40 MG PO DAILY@0700 Prescribed by: JOSEFINA BARRIGA on 10/11/16 0715 Patient Home Medication List Home Medication List Reviewed: Yes Review of Systems Constitutional: no symptoms reported EENTM: no symptoms reported Respiratory: no symptoms reported Cardiovascular: see HPI Gastrointestinal: no symptoms reported Genitourinary: no symptoms reported Musculoskeletal: see HPI Skin: see HPI Psychiatric/Neurological: No Symptoms Reported Past Isloimh-Cryvcr-Vezsoj Hx Past Med/Social Hx: Reviewed Nursing Past Med/Soc Hx Patient Social History Alcohol Use: Denies Use Smoking Status: Never a Smoker 2nd Hand Smoke Exposure: Yes Recent Infectious Disease Expo: No Recent Hopitalizations: Yes (SURGERY 10/10/16) Seasonal Allergies Seasonal Allergies: No Past Medical History Surgeries: Yes (HYSTERECTOMY 1980, R CAROTID "PATCH PLACED") Gallbladder, Hysterectomy, Vascular Surgery (Carotid surgery, left lower extremity stenting) Respiratory: No Cardiac: Yes Hypertension, Peripheral Vascular Neurological: No Reproductive Disorders: No Genitourinary: No Gastrointestinal: Yes (GB REMOVED 2013) Gall Bladder Disease Musculoskeletal: No Endocrine: No HEENT: No Cancer: No Psychosocial: No Integumentary: No Blood Disorders: No Family Medical History FH: gallbladder disease 19 MOTHER Gout 19 FATHER, Onset:60 Myocardial infarction 19 FATHER, Onset:65 Thyroid disease G8 SISTER Physical Exam Vital Signs Vital Signs - First Documented 10/25/20 12:08 Temp 36.6 Pulse 61 Resp 18 B/P (MAP) 187/72 (110) Pulse Ox 98 O2 Delivery Room Air Capillary Refill : Less Than 3 Seconds Height, Weight, BMI Height: 5'7.00" Weight: 148lbs. 0.2oz. 67.888603rd; 25.00 BMI Method:Stated General Appearance: WD/WN, no apparent distress HEENT: normal ENT inspection Neck: normal inspection Cardiovascular: regular rate, rhythm, no edema, no murmur, other (Pulseless right foot) Respiratory: lungs clear, normal breath sounds, no respiratory distress Ankles: bilateral ankle other (Right lower leg, ankle, and foot appeared atrophied compared to the left) Feet: right foot other (Pulseless right foot that is cool to the touch and pale. Capillary refill is present and is about 5 seconds.) Neurologic/Tendon: normal sensation, normal motor functions, normal tendon functions Neurologic/Psychiatric: mold filler II-XII nml as tested, no motor/sensory deficits, alert, normal mood/affect, oriented x 3 Skin: normal color, warm/dry, other (See above) Progress/Results/Core Measures Results/Orders My Orders Orders - HERMILA LÓPEZ MD Us Right Low Ext [id number] (10/25/20 12:26) Vital Signs/I&O 10/25/20 10/25/20 12:08 15:22 Temp 36.6 Pulse 61 62 Resp 18 18 B/P (MAP) 187/72 (110) 172/87 Pulse Ox 98 98 O2 Delivery Room Air Blood Pressure Mean: 110 Progress Progress Note : Progress Note Arterial ultrasound was obtained. There was significantly decreased monophasic flow throughout the right lower extremity. No complete occlusions were identified. Case was discussed with Dr. Barriga. He would like her to be seen the clinic as soon as possible. Strict return precautions were discussed with the patient. Diagnostic Imaging Diagonstic Imaging: Ultrasound Plain Films/CT/US/NM/MRI: leg Comments NAME: MY[facility] REC#: [id number] PT STATUS: REG ER : 1945 PHYSICIAN: HERMILA LÓPEZ MD ADMIT DATE: 10/25/20/ER Signed Date of Exam:10/25/20 US RIGHT LOW EXT [id number] EXAMINATION: US RIGHT LOW EXT [id number]. TECHNIQUE: Multi projectional grayscale, color Doppler, and spectral Doppler imaging of the right lower extremity arteries was performed. INDICATION: Decreased pulses and cold right foot. COMPARISON: None available. FINDINGS: Color Doppler imaging shows patency of the common femoral, proximal deep femoral, superficial femoral, popliteal, peroneal, anterior tibial, and dorsalis pedis arteries. In the proximal thigh, there are normal triphasic waveforms; however, in the distal thigh and below the knee, there are predominantly monophasic waveforms with diminished acceleration indices that favor peripheral vascular disease and more proximal upstream stenosis. However, there are no elevated peak systolic velocities that would indicate a hemodynamically significant stenosis. IMPRESSION: 1. No arterial occlusion within the right lower extremity arteries. 2. Monophasic waveforms with diminished velocities favor peripheral vascular disease. Dictated by: Dictated on workstation # [id number] Dict: 10/25/20 1442 Trans: 10/25/20 1507 [id number] Interpreted by: FIFI STRANGE MD Electronically signed by: FIFI STRANGE MD 10/25/20 1507 Departure Impression Primary Impression: Peripheral artery disease Disposition: HOME, SELF-CARE Condition: Stable Departure-Patient Inst. Decision time for Depature: 15:12 Referrals: JOSEFINA BARRIGA MD ,LOCAL PHYSICIAN (PCP) Primary Care Physician Patient Instructions: Peripheral Artery Disease and Claudication Add. Discharge Instructions: Follow-up with Dr. Barriga's office as soon as possible. Please call today or tomorrow morning to schedule an appointment. In the meantime take aspirin 81 mg daily. Call with questions or concerns. Return to the emergency room for worsening symptoms or if you have worsening capillary refill that takes more than 6 seconds. All discharge instructions reviewed with patient and/or family. Voiced understanding. Copy Copies To 1: JOSEFINA BARRIGA MD, JOSHUA T MD Mar 2, 2021 15:13
[2020-10-25 15:22] VITALS: BP 172/87
== END 2020-10-25 15:22 | disposition home or self-care (01) ==
LOC: EDUNIT# 12:08 → ER 12:10
DX: I73.9 Peripheral vascular disease, unspecified (principal); I10 Essential (primary) hypertension; Z88.8 Allergy status to other drugs, medicaments and biological substances; Z77.22 Contact with and (suspected) exposure to environmental tobacco smoke (acute) (chronic); Z82.49 Family history of ischemic heart disease and other diseases of the circulatory system; Z79.82 Long term (current) use of aspirin
CPT/HCPCS: 93926

== ENCOUNTER 2020-11-02 13:00 | Day surgery (SDC) | payer MEDICARE ==
[~2020-11-02] VITALS: Ht 170.2 cm; Wt 70.3 kg
[2020-11-02] VITALS (12 sets, daily range): BP systolic 138–189; BP diastolic 60–79
[2020-11-02 11:41] LABS: INR 0.9 (0.8-1.4); PROTHROMBIN TIME PATIENT 12.5 SEC (12.2-14.7)
[2020-11-02 11:43] LABS: ALBUMIN 4.1 GM/DL (3.2-4.5); BILIRUBIN,TOTAL 0.6 MG/DL (0.1-1.0); CALCIUM 9.4 MG/DL (8.5-10.1); CREATININE SERUM 1.24 MG/DL (0.60-1.30); POTASSIUM 3.4 MMOL/L (3.6-5.0); TOTAL PROTEIN 7.4 GM/DL (6.4-8.2)
--- NOTE | 2020-11-02 11:44 | Diagnostic Imaging Report ---
INDICATION: Peripheral vascular disease, assessment prior to angiography with possible angioplasty. TECHNIQUE: Single view chest 11:06 a.m. CORRELATION STUDY: 10/10/2016. FINDINGS: The heart size, mediastinal configuration and pulmonary vascularity are within normal limits. The lungs are clear with no consolidating infiltrate. There is no significant effusion or pneumothorax. There is a metallic springlike density projecting over the mid neck. IMPRESSION: 1. Negative for acute abnormality of the chest. 2. Metallic springlike density projects over the mid neck. May very well be overlying, however clinical correlation is recommended. Dictated by: Dictated on workstation # [id number]
[2020-11-02 12:07] LABS: HEMOGLOBIN 14.1 g/dL (11.5-16.0)
--- NOTE | 2020-11-02 12:25 | Cardiac Procedure Note-CS/ASA ---
Pre-Procedure Note Pre-Op Procedure Note H&P Reviewed The H&P was reviewed, patient examined and no changes noted. Date H&P Reviewed: Nov 02, 2020 Time H&P Reviewed: 12:24 Conscious Sedation Pre-Proced Time 12:24 ASA Score 3 For ASA 3 and 4: Consider anesthesia and medical clearance. Also, for patients with a history of failed moderate sedation consider anesthesia. Airway Lungs Heart ASA score ASA 1: a normal healthy patient ASA 2: a patient with a mild systemic disease (mid diabetes, controlled hypertension, obesity x ASA 3: a patient with a severe systemic disease that limits activity (angina, COPD, prior Myocardial infarction) ASA 4: a patient with an incapacitating disease that is a constant threat to life (CHF, renal failure) ASA 5: a moribund patient not expected to survive 24 hrs. (ruptured aneurysm) ASA 6: a declared brain- patient whose organs are being harvested. For emergent operations, add the letter E after the classification Mallampati Classification Grade 3 Sedation Plan Analgesia, Amnesia, Plan communicated to team members, Discussed options with patient/fam, Discussed risks with patient/fam The patient is an appropriate candidate to undergo the planned procedure, sedation, and anesthesia. The patient immediately re-assessed prior to indication. JOSEFINA BRICE MD Nov 02, 2020 12:25
[~2020-11-02 13:00] MED LIST changes: +CALC-778 PO; +HEParin (CATH LAB) 2,000 ML IV ONE; +HEParin 1000 UNIT/ML (10ML VIAL) FOR BOLUS ONE; +HYDR25TA4 PO; +IBUP-2473 PO; +LIDOCAINE 1% INJ 20 ML 20 ML VIAL ONE; +METO50TA7 PO; +MIDAZOLAM 5 MG/5 ML (VERSED) VIAL ONE; +NS IV 1000 ML 1,000 ML IV SCH; +NS IV 1000 ML 1,000 ML ONE; +fentaNYL INJ 100 MCG/2 ML AMP ONE
[2020-11-02] MEDS ORDERED: CLOPIDOGREL 300 MG (PLAVIX) TABLET PO ONE (13:11)
[2020-11-02] MEDS ORDERED: ASPIRIN 325 MG (5 GR) TABLET ONE (13:11)
--- NOTE | 2020-11-02 13:44 | Peripheral Report ---
Peripheral Report Physician (s)/Cistern Room Operator (s) Physician JOSEFINA BRICE MD Pre-Procedure Diagnosis Pre-Procedure Diagnosis: PAD Post-Procedure Note Procedure Start Date: Nov 02, 2020 Name of Procedure: Abdominal aortogram with bilateral runoff Third order Additional imaging Stenting of the right popliteal artery Selective right renal angiogram Findings/Procedure Note PROCEDURE NOTE: 75-year-old lady with extensive peripheral artery disease, had interventions in the past, patient had abnormal RORY and foot ulcer, she was scheduled for peripheral angiogram, canceled the procedure due to social issues and return to the office with significant pain and claudication, decided to proceed with peripheral and 2 g possible angioplasty. After explaining the procedure to the patient, all pros and cons were explained, all questions were answered. The patient signed the consent and then she was placed on the cardiac catheterization laboratory. The patient was placed on the cardiac catheterization laboratory. Groin was prepped SL fashion local anesthesia was used. Sheath placed in the left femoral artery, runoff to the left leg was done, Opal catheter advanced to the right common iliac artery runoff to the right leg was done. Long stork wire was advanced then the catheter was removed, patient was given 5000 units of heparin, short 6 Latvian sheath was removed and used 45 cm 6 Latvian sheath, advanced a long straight catheter down to the distal SFA and did angiogram which showed total occlusion of the right popliteal artery. The stork was removed and a used command 18, advanced distally then predilated the area with 5.0 balloon then 6.0 balloon using [place] 18 balloons, proceeded with deployment of Supera 5.5 x 60 in the distal SFA and popliteal postdilated with 5.5 balloon with excellent results. The sheath was retracted and exchanged back into short 6 Latvian sheath, I advanced the room catheter to the abdominal aorta and abdominal aortogram was done then I did selective right renal angiogram. FINDINGS: Right lower extremity, total occlusion of the right popliteal artery, moderate disease distally, successful intervention with deployment of Supera 5.5 x60 mm with excellent results, repeat angiogram showed excellent flow, DSA imaging of the trifurcation showed [id number] disease below the trifurcation nonobstructive disease. Left lower extremity, patent stent with mild to moderate disease diffusely nonobstructive disease down to the trifurcation Abdominal aortogram showed patent stent in the abdominal aorta infrarenally, atherosclerotic plaques noted, left renal artery is normal, the right renal artery is subtotally occluded reconstructed. SMA and JANINA are normal Selective right renal angiogram done with a rim catheter, showing subtotal occlusion of the right renal artery. I am planning to proceed with intervention in the future, did not do the intervention at this point to limit the amount of exposure to contrast due to her underlying chronic renal insufficiency CONCLUSIONS: 1. Total occlusion of the right popliteal artery, successful intervention using superior 5.5 x 60 mm with excellent flow distally, nonobstructive disease 2. Diffuse atherosclerotic plaques in the left lower extremity, patent stent, good flow down to the trifurcation 3. Subtotal occlusion of the right renal artery that need to be intervened on in the near future 4. Patent stent in the abdominal aorta with mild atherosclerotic plaques. DISCUSSION AND RECOMMENDATIONS: Will continue maximizing medical therapy, add statin, continue on aspirin and Plavix and planning to bring the patient back within 2-4 weeks for intervention on the right renal artery Anesthesia Type: Conscious Sedation Estimated blood loss (mL): 35 ml Contrast Amount: 70 ml Total Radiation Dose: 62 mGy Post-Procedure Diagnosis Post-operative diagnosis: Ischemic foot ulcer Peripheral arterial disease Claudication Chronic renal insufficiency Hypertension JOSEFINA BRICE MD Nov 02, 2020 13:44
[2020-11-02] MEDS ORDERED: CALCIUM CARBONATE 300 MG PO PRN (13:45)
[2020-11-02] MEDS ORDERED: PATIENT MAY USE OWN MEDS, ALL PO SCH (13:45)
[2020-11-02] MEDS: NS IV 1000 ML 1,000 ML IV SCH (14:24)
[2020-11-02] MEDS ORDERED: CALCIUM CARBONATE 500 MG (TUMS) TAB.CHEW PO PRN (17:45)
[2020-11-02] MEDS ORDERED: ROSUVASTATIN 10 MG (CRESTOR) TABLET PO SCH (21:00)
[2020-11-02] MEDS ORDERED: meTOproloL SUCCINATE 50 MG (TOPROL XL) TAB PO SCH (21:00)
[2020-11-03] VITALS: BP 124/59
[2020-11-03] MEDS: NS IV 1000 ML 1,000 ML IV SCH (00:01)
[2020-11-03 03:53] VITALS: BP 169/81
[2020-11-03 04:36] LABS: HEMOGLOBIN 12.8 g/dL (11.5-16.0); MEAN PLATELET VOLUME 10.8 fL (9.0-12.2); WHITE BLOOD COUNT 10.5 10^3/uL (4.3-11.0)
[2020-11-03 04:54] LABS: CALCIUM 8.4 MG/DL (8.5-10.1); CREATININE SERUM 1.07 MG/DL (0.60-1.30); POTASSIUM 3.2 MMOL/L (3.6-5.0)
--- NOTE | 2020-11-03 05:22 | Cardiology Progress Note ---
Subjective Date Seen by Provider: Nov 03, 2020 Time Seen by Provider: 08:13 Subjective/Events-last exam patient was seen at bedside, feeling better, foot is warm. Still have some diminished pulse., Groin is healing well Review of Systems General: No Chills, No Night Sweats, No Fatigue, No Malaise, No Appetite, No Other HEENT: No Head Aches, No Visual Changes, No Eye Pain, No Ear Pain, No Dysphasia, No Sinus Congestion, No Post Nasal Drip, No Sore Throat, No Other Pulmonary: No Dyspnea, No Cough, No Pleuritic Chest Pain, No Other Cardiovascular: No: Chest Pain, Palpitations, Orthopnea, Paroxysmal Noc. Dyspnea, Edema, Lt Headedness, Other Objective-Cardiology Exam Last Set of Vital Signs Vital Signs 11/03/20 03:53 Temp 36.3 Pulse 56 Resp 14 B/P (MAP) 169/81 (110) Pulse Ox 95 O2 Delivery Room Air Capillary Refill : General: Alert, Oriented X3, Cooperative HEENT: Atraumatic, PERRLA Neck: Supple, No JVD, No Thyromegaly Lungs: Clear to Auscultation, Normal Air Movement Heart: Regular Rate, Normal S1, Normal S2, No Murmurs Abdomen: Normal Bowel Sounds, Soft, No Tenderness, No Hepatosplenomegaly, No Masses Extremities: No Clubbing, No Cyanosis, No Edema, Normal Pulses, No Tenderness/Swelling Skin: No Rashes, No Breakdown, No Significant Lesion Neuro: Normal Gait, Normal Speech, Strength at 5/5 X4 Ext, Normal Tone, Sensation Intact Psych/Mental Status: Mental Status NL, Mood NL Results Lab Laboratory Tests 11/02/20 11:15 11/03/20 04:15 A/P-Cardiology Admission Diagnosis Peripheral arterial disease Renal artery stenosis Hypertension Hyperlipidemia Assessment/Plan Peripheral artery disease, total occlusion of the right popliteal artery, status post stentin. Total occlusion of the right popliteal artery, successful intervention using superior 5.5 x 60 mm with excellent flow distally, nonobstructive disease 2. Diffuse atherosclerotic plaques in the left lower extremity, patent stent, good flow down to the trifurcation 3. Subtotal occlusion of the right renal artery that need to be intervened on in the near future 4. Patent stent in the abdominal aorta with mild atherosclerotic plaques. Renal artery stenosis, subtotal occlusion of the right renal artery, underlying renal insufficiency, planning to proceed with intervention on the right renal artery in 2 weeks, questionable compliance with medication Hypertension, restart home medication monitor blood pressure next Hyperlipidemia continue on statin JOSEFINA BRICE MD Nov 03, 2020 05:22
[2020-11-03] MEDS ORDERED: ROSU10TA28 PO (05:23)
--- NOTE | 2020-11-03 05:24 | Discharge Inst-Post CATH ---
Discharge Inst-CATH/EP Problems Reviewed?: Yes Post Cardiac Cath/EP D/C Inst Follow Up/Plan Appointment with Dr Barriga's office in 2-4 weeks <b>CARDIAC CATH/EP PROCEDURE DISCHARGE INSTRUCTIONS</b> ACTIVITY * Go Home directly and rest. * Limit activity of the leg (or wrist if it was used) for 7 days including aerobics, swimming, jogging, bicycling, etc. * Restrict stair-climbing for 7 days if possible, if not, climb up with your non-cath leg, then bring together on the same step. * Avoid lifting, pushing, pulling or excessive movement of the affected extremity for 7 days. * Customary sexual activity may be resumed after 2 days-use caution not to use a position that strains or causes pain to the affected extremity. * No driving for 24 hours. * NO SMOKING. * Avoid straining for bowel movements for 7 days. * Gentle walking on level ground is allowed. * Returning to work will depend on the type of procedure and the results. Your doctor will discuss this with you. CALL YOUR DOCTOR FOR ANY OF THE FOLLOWING: *If bleeding from the puncture site occurs- Apply gentle pressure to site with clean cloth and call your doctor or EMS. * If a knot or lump forms under the skin, increases in size, or causes pain. * If bruising appears to be worsening or moving further down your leg instead of disappearing. * Temperature above 101 F. CARE OF YOUR GROIN INCISION; * Bruising or purple discoloration of the skin near the puncture site is common. * You may shower only, no bathtub bathing for 5 days. Be careful to avoid slipping as your leg may feel stiff. * If a closure device was used on your femoral artery, please see the attached guide regarding care of the device and your leg. * Leave dressing on FOR 24 hours. CARE OF YOUR WRIST INCISION; * Bruising or purple discoloration of the skin near the puncture site is common. * You may shower. * DO NOT submerge wrist. * Leave dressing on FOR 24 hours. JOSEFINA BARRIGA MD Nov 03, 2020 05:24
[2020-11-03] MEDS ORDERED: KCL 20 MEQ TAB (K-DUR) PO NR (08:30)
[2020-11-03] MEDS ORDERED: ASPIRIN E.C. 81 MG (ECOTRIN) TAB PO SCH (09:00)
[2020-11-03] MEDS ORDERED: HYDROCHLOROTHIAZIDE 25 MG (HCTZ) TAB PO SCH (09:00)
[2020-11-03] MEDS ORDERED: CLOPIDOGREL 75 MG (PLAVIX) TABLET PO SCH (09:00)
[2020-11-03] MEDS ORDERED: amLODIPine 10 MG (NORVASC) TAB PO SCH (09:00)
== END 2020-11-03 10:15 | disposition home or self-care (01) ==
LOC: CATH 13:00 → CSD 14:35 → CATH 11-03 10:15
PROVIDERS: ATTEND Internal Medicine Cardiovascular Disease
DX: I70.213 Atherosclerosis of native arteries of extremities with intermittent claudication, bilateral legs (principal); L97.509 Non-pressure chronic ulcer of other part of unspecified foot with unspecified severity; I12.9 Hypertensive chronic kidney disease with stage 1 through stage 4 chronic kidney disease, or unspecified chronic kidney disease; N18.9 Chronic kidney disease, unspecified; E78.2 Mixed hyperlipidemia; Z79.899 Other long term (current) drug therapy; Z79.82 Long term (current) use of aspirin; Z88.8 Allergy status to other drugs, medicaments and biological substances; Z90.710 Acquired absence of both cervix and uterus
CPT/HCPCS: 36247; 36248; 37226; 71045; 75630; 80048; 80053; 80061; 85027 ×2; 85610; 85730; 87081; C1725 ×3; C1760; C1769 ×2; C1876; C1887 ×2; C1894 ×2; 36415

== ENCOUNTER 2020-11-30 10:00 | Day surgery (SDC) | payer MEDICARE ==
[2020-11-30] VITALS (11 sets, daily range): BP systolic 137–189; BP diastolic 60–80
[~2020-11-30] VITALS: Ht 167.5 cm; Wt 71.8 kg
[2020-11-30 08:11] LABS: HEMOGLOBIN 13.5 g/dL (11.5-16.0); MEAN PLATELET VOLUME 10.5 fL (9.0-12.2); WHITE BLOOD COUNT 8.8 10^3/uL (4.3-11.0)
--- NOTE | 2020-11-30 08:18 | Diagnostic Imaging Report ---
INDICATION: Atherosclerotic disease. Compared 11/02/2020. FINDINGS: The lungs are clear. There is no failure, effusion or pneumothorax. IMPRESSION: Normal frontal chest Dictated by: Dictated on workstation # [id number]
[2020-11-30 08:25] LABS: INR 0.9 (0.8-1.4)
[2020-11-30 08:28] LABS: BILIRUBIN,URINE NEGATIVE (NEGATIVE); CLARITY,URINE CLEAR; COLOR,URINE YELLOW; GLUCOSE, URINE (UA) NEGATIVE (NEGATIVE); KETONES,URINE NEGATIVE (NEGATIVE); LEUKOCYTE ESTERASE ,URINE TRACE (NEGATIVE); NITRITE,URINE NEGATIVE (NEGATIVE); PROTEIN,URINE NEGATIVE (NEGATIVE)
[2020-11-30 08:32] LABS: ALBUMIN 4.3 GM/DL (3.2-4.5); BILIRUBIN,TOTAL 0.6 MG/DL (0.1-1.0); CALCIUM 9.7 MG/DL (8.5-10.1); CREATININE SERUM 1.11 MG/DL (0.60-1.30); POTASSIUM 3.4 MMOL/L (3.6-5.0); TOTAL PROTEIN 7.9 GM/DL (6.4-8.2)
[2020-11-30 08:40] LABS: BACTERIA,URINE TRACE /HPF; SQUAMOUS EPITHELIAL CELL,UR 0-2 /HPF; WBC,URINE 0-2 /HPF
[~2020-11-30 10:00] MED LIST changes: +ASPI-999 PO; +CALC500T64 PO; +POTA99TA17 PO; +PSYL3.4P5 PO; +ROSU10TA28 PO
[2020-11-30] MEDS ORDERED: PATIENT MAY USE OWN MEDS, ALL PO SCH (11:45)
--- NOTE | 2020-11-30 11:47 | Cardiac Procedure Note-CS/ASA ---
Pre-Procedure Note Pre-Op Procedure Note H&P Reviewed The H&P was reviewed, patient examined and no changes noted. Date H&P Reviewed: Nov 30, 2020 Time H&P Reviewed: 09:00 Conscious Sedation Pre-Proced Time 09:00 ASA Score 3 For ASA 3 and 4: Consider anesthesia and medical clearance. Also, for patients with a history of failed moderate sedation consider anesthesia. Airway Lungs Heart ASA score ASA 1: a normal healthy patient ASA 2: a patient with a mild systemic disease (mid diabetes, controlled hypertension, obesity x ASA 3: a patient with a severe systemic disease that limits activity (angina, COPD, prior Myocardial infarction) ASA 4: a patient with an incapacitating disease that is a constant threat to life (CHF, renal failure) ASA 5: a moribund patient not expected to survive 24 hrs. (ruptured aneurysm) ASA 6: a declared brain- patient whose organs are being harvested. For emergent operations, add the letter E after the classification Mallampati Classification Grade 3 Sedation Plan Analgesia, Amnesia, Plan communicated to team members, Discussed options with patient/fam, Discussed risks with patient/fam The patient is an appropriate candidate to undergo the planned procedure, sedation, and anesthesia. The patient immediately re-assessed prior to indication. JOSEFINA BRICE MD Nov 30, 2020 11:47
--- NOTE | 2020-11-30 11:52 | Peripheral Report ---
Peripheral Report Physician (s)/Check Out Cashier (s) Physician JOSEFINA BRICE MD Pre-Procedure Diagnosis Pre-Procedure Diagnosis: Renal artery stenosis Post-Procedure Note Procedure Start Date: Nov 30, 2020 Name of Procedure: Right lower extremity runoff Selective right renal artery angiogram Angioplasty of the right renal artery Findings/Procedure Note PROCEDURE NOTE: 75-year-old lady with extensive peripheral arterial disease underwent recent angioplasty and stenting to the right SFA with excellent results, noted to have severe right renal artery stenosis/subtotal occlusion she was scheduled for stag ed intervention After explaining the procedure to the patient, all pros and cons were explained, all questions were answered. The patient signed the consent and then she was placed on the cardiac catheterization laboratory. The patient was placed on the cardiac catheterization laboratory. Groin was prepped SL fashion local anesthesia was used. Sheath placed in the right femoral artery, runoff to the right leg was done using minimal amount of contrast then I attempted to use long sheath to reach the right renal artery, the aorta is very small did not allow the curve of the sheath. I exchanged it into a short 6 Armenian sheath then placed short IM guide curve with difficulty I was able to intubate the right renal artery that has subtotal occlusion I used multiple wires with significant difficulties finally whisper wire was successful in crossing the subtotal occlusion and I proceeded with balloon angioplasty using Trek 3 x 15 balloon multiple inflations were done reestablish the lumen. I was concerned about the use of whisper wire I exchanged it and used BMW wire tried to advance Herculink 5 x 12 stent without success, I attempted different wires without success after multiple attempt I decided to abort the procedure due to the fact that I use the large amount of contrast and radiation. Sheath was removed and closure device deployed FINDINGS: 1. Right renal artery has subtotal occlusion successful balloon angioplasty using coronary balloon 3 x 15 with multiple inflation with excellent improvement, I was unable to advance stent due to the small aorta on the curve of the renal artery, was unable to advance a curved sheath due to the small aorta. Procedure was aborted after reestablishing good flow in the right renal artery, she will need referral for vascular surgery evaluation and possible stenting of the right renal artery 2. Right lower extremity runoff showing good flow down to the trifurcation with patent popliteal stent CONCLUSIONS: 1. Subtotal right renal artery stenosis successful complex intervention with balloon angioplasty with good results, I was unable to advance a stent in that artery. 2. Good flow in the right lower extremity with patent popliteal stent down to the trifurcation DISCUSSION AND RECOMMENDATIONS: Maximize medical therapy, arrange for follow-up as an outpatient, educated on drinking large amount of water. Will consider referring her for vascular surgery evaluation and possible renal artery stenting Anesthesia Type: Conscious Sedation Estimated blood loss (mL): 55 ml Contrast Amount: 105 ml Total Radiation Dose: 532 mGy Post-Procedure Diagnosis Post-operative diagnosis: Renal artery stenosis Malignant hypertension Peripheral arterial disease Hyperlipidemia JOSEFINA BRICE MD Nov 30, 2020 11:52
[2020-11-30] MEDS: NS IV 1000 ML 1,000 ML IV SCH (13:30)
[2020-11-30] MEDS ORDERED: meTOproloL SUCCINATE 50 MG (TOPROL XL) TAB PO SCH (18:00)
[2020-11-30] MEDS ORDERED: ACETAMINOPHEN 325 MG TABLET PO PRN (18:15)
[2020-11-30] MEDS ORDERED: ROSUVASTATIN 10 MG (CRESTOR) TABLET PO SCH (21:00)
[2020-12-01 00:59] VITALS: BP 127/56
[2020-12-01] MEDS: NS IV 1000 ML 1,000 ML IV SCH ×2 (02:59→05:52)
[2020-12-01 04:13] VITALS: BP 146/57
[2020-12-01 04:17] LABS: HEMOGLOBIN 11.3 g/dL (11.5-16.0); MEAN PLATELET VOLUME 11.1 fL (9.0-12.2); WHITE BLOOD COUNT 8.5 10^3/uL (4.3-11.0)
[2020-12-01 04:27] LABS: CALCIUM 8.2 MG/DL (8.5-10.1); CREATININE SERUM 0.93 MG/DL (0.60-1.30); POTASSIUM 3.3 MMOL/L (3.6-5.0)
--- NOTE | 2020-12-01 05:10 | Discharge Inst-Post CATH ---
Discharge Inst-CATH/EP Problems Reviewed?: Yes Post Cardiac Cath/EP D/C Inst Follow Up/Plan Appointment with Dr Barriga in 2-4 weeks <b>CARDIAC CATH/EP PROCEDURE DISCHARGE INSTRUCTIONS</b> ACTIVITY * Go Home directly and rest. * Limit activity of the leg (or wrist if it was used) for 7 days including aerobics, swimming, jogging, bicycling, etc. * Restrict stair-climbing for 7 days if possible, if not, climb up with your non-cath leg, then bring together on the same step. * Avoid lifting, pushing, pulling or excessive movement of the affected extremity for 7 days. * Customary sexual activity may be resumed after 2 days-use caution not to use a position that strains or causes pain to the affected extremity. * No driving for 24 hours. * NO SMOKING. * Avoid straining for bowel movements for 7 days. * Gentle walking on level ground is allowed. * Returning to work will depend on the type of procedure and the results. Your doctor will discuss this with you. CALL YOUR DOCTOR FOR ANY OF THE FOLLOWING: *If bleeding from the puncture site occurs- Apply gentle pressure to site with clean cloth and call your doctor or EMS. * If a knot or lump forms under the skin, increases in size, or causes pain. * If bruising appears to be worsening or moving further down your leg instead of disappearing. * Temperature above 101 F. CARE OF YOUR GROIN INCISION; * Bruising or purple discoloration of the skin near the puncture site is common. * You may shower only, no bathtub bathing for 5 days. Be careful to avoid slipping as your leg may feel stiff. * If a closure device was used on your femoral artery, please see the attached guide regarding care of the device and your leg. * Leave dressing on FOR 24 hours. CARE OF YOUR WRIST INCISION; * Bruising or purple discoloration of the skin near the puncture site is common. * You may shower. * DO NOT submerge wrist. * Leave dressing on FOR 24 hours. JOSEFINA BARRIGA MD Dec 01, 2020 05:10
[2020-12-01] MEDS ORDERED: KCL 20 MEQ TAB (K-DUR) PO ONE (05:15)
--- NOTE | 2020-12-01 07:56 | Cardiology Progress Note ---
Subjective Date Seen by Provider: Dec 01, 2020 Time Seen by Provider: 07:55 Subjective/Events-last exam Patient is laying down in bed, feeling well. No new complaint, groin is healing well Review of Systems General: No Chills, No Night Sweats, No Fatigue, No Malaise, No Appetite, No Other HEENT: No Head Aches, No Visual Changes, No Eye Pain, No Ear Pain, No Dysphasi a, No Sinus Congestion, No Post Nasal Drip, No Sore Throat, No Other Pulmonary: No Dyspnea, No Cough, No Pleuritic Chest Pain, No Other Cardiovascular: No: Chest Pain, Palpitations, Orthopnea, Paroxysmal Noc. Dyspnea, Edema, Lt Headedness, Other Objective-Cardiology Exam Last Set of Vital Signs Vital Signs 12/01/20 04:13 Temp 35.9 Pulse 50 Resp 17 B/P (MAP) 146/57 (86) Pulse Ox 94 O2 Delivery Nasal Cannula O2 Flow Rate 2.00 Capillary Refill : Less Than 3 Seconds I&O Intake and Output 12/01/20 00:00 Intake Total 1500 ml Output Total 2140 ml Balance -640 ml Intake Oral 500 ml IV Total 1000 ml Output Urine Total 2140 ml # Bowel Movements 1 Daily Weight Change No General: Alert, Oriented X3, Cooperative HEENT: Atraumatic, PERRLA Neck: Supple, No JVD, No Thyromegaly Lungs: Clear to Auscultation, Normal Air Movement Heart: Regular Rate, Normal S1, Normal S2, No Murmurs Abdomen: Normal Bowel Sounds, Soft, No Tenderness, No Hepatosplenomegaly, No Masses Extremities: No Clubbing, No Cyanosis, No Edema, Normal Pulses, No Ten derness/Swelling Skin: No Rashes, No Breakdown, No Significant Lesion Neuro: Normal Gait, Normal Speech, Strength at 5/5 X4 Ext, Normal Tone, Sensation Intact Psych/Mental Status: Mental Status NL, Mood NL Results Lab Laboratory Tests 11/30/20 08:05 12/01/20 03:50 A/P-Cardiology Admission Diagnosis Peripheral arterial disease Renal artery stenosis Hypertension Hyperlipidemia Assessment/Plan Peripheral arterial disease, extensive intervention in the past, angiogram to the right leg showing good flow Severe right renal artery stenosis, complex intervention with balloon angioplasty, I was unable to advance a stent, arrange for referral for evaluation with vascular surgery Hypertension, restart home medication monitor blood pressure Hyperlipidemia, monitor lipids JOSEFINA BRICE MD Dec 01, 2020 07:56
[2020-12-01 08:00] VITALS: BP 151/71
[2020-12-01] MEDS ORDERED: amLODIPine 10 MG (NORVASC) TAB PO SCH (09:00)
[2020-12-01] MEDS ORDERED: CLOPIDOGREL 75 MG (PLAVIX) TABLET PO SCH (09:00)
[2020-12-01] MEDS ORDERED: HYDROCHLOROTHIAZIDE 25 MG (HCTZ) TAB PO SCH (09:00)
[2020-12-01] MEDS ORDERED: ASPIRIN 81 MG CHEW (CHILDREN'S ASA) PO SCH (09:00)
[2020-12-01] MEDS ORDERED: POTASSIUM 99 MG PO SCH (09:00)
[2020-12-01 10:30] VITALS: BP 151/71
== END 2020-12-01 10:30 | disposition home or self-care (01) ==
LOC: CATH 10:00 → CSD 11:45 → CATH 12-01 10:30
PROVIDERS: ATTEND Internal Medicine Cardiovascular Disease
DX: I70.1 Atherosclerosis of renal artery (principal); I65.23 Occlusion and stenosis of bilateral carotid arteries; I10 Essential (primary) hypertension; E78.2 Mixed hyperlipidemia; Z88.8 Allergy status to other drugs, medicaments and biological substances; Z79.02 Long term (current) use of antithrombotics/antiplatelets; Z79.82 Long term (current) use of aspirin; Z79.899 Other long term (current) drug therapy; Z90.710 Acquired absence of both cervix and uterus; Z90.49 Acquired absence of other specified parts of digestive tract; Z95.820 Peripheral vascular angioplasty status with implants and grafts
CPT/HCPCS: 37246; 71045; 75710; 80048; 80053; 81000; 85027 ×2; 85610; 85730; 87081; C1725; C1760; C1769 ×5; C1876; C1887 ×2; C1894; 36415